=== PATIENT | female | born 1965 | race Caucasian/White ===

== ENCOUNTER 2017-04-05 06:30 | Day surgery (SDC) | payer BC, OTHER ==
[2017-04-05] MEDS: Lactated Ringers 1,000 ML IV SCH ×3 (07:11→19:57)
[2017-04-05] MEDS ORDERED: Fluorescein 5 ML Vial ONE (07:18)
[2017-04-05] MEDS ORDERED: Dexamethasone 4 MG/ML 5 ML MDV ONE (07:18)
[2017-04-05] MEDS ORDERED: Methylene Blue 50 MG/10 ML Ampule ONE (07:18)
[2017-04-05] MEDS ORDERED: Ondansetron 4 MG/2 ML SDV ONE (07:18)
[2017-04-05] MEDS ORDERED: diphenhydrAMINE 50 MG/ML SDV ONE (07:18)
[2017-04-05] MEDS ORDERED: Rocuronium 10 MG/ML 10 ML Syringe ONE (07:18)
[2017-04-05] MEDS ORDERED: Bupivacaine 0.25% 10 ML SDV ONE (07:18)
[2017-04-05] MEDS ORDERED: Propofol 200 MG/20 ML SDV ONE (07:19)
[2017-04-05] MEDS ORDERED: Midazolam 1 MG/ML 2 ML SDV ONE (07:19)
[2017-04-05] MEDS ORDERED: fentaNYL 100 MCG/2 ML SDV ONE (07:19)
[2017-04-05] MEDS ORDERED: Scopolamine 1.5 MG Transdermal Patch ONE (07:29)
[2017-04-05 07:31] LABS: CHLORIDE,CL 106 mmol/L (98-110); SODIUM,NA 138 mmol/L (136-146)
--- NOTE | 2017-04-05 07:31 | PCM.PREANE ---
Preanesthetic Assessment - Anesthesia/Transfusion/Family Hx Anesthesia History: Prior Anesthesia Without Reaction Family History of Anesthesia Reaction: No Transfusion History: No Prior Transfusion(s) - Review of Systems General: No Symptoms Pulmonary: No Symptoms Cardiovascular: No Symptoms Gastrointestinal: No Symptoms Neurological: No Symptoms Other: Reports: None - Physical Assessment NPO Status Date: 04/04/17 O2 Sat by Pulse Oximetry: 97 Respiratory Rate: 16 Vital Signs: Last Vital Signs Temp 36.6 C 04/05/17 07:10 Pulse 62 04/05/17 07:10 Resp 16 04/05/17 07:10 BP 110/77 04/05/17 07:10 Pulse Ox 97 04/05/17 07:10 Height: 1.63 m Weight: 68.039 kg ASA Class: 2 Mental Status: Alert & Oriented x3 Airway Class: Mallampati = 1 Dentition: Reports: Normal Dentition ROM/Head Extension: Full Lungs: Clear to Auscultation - Lab Values: Laboratory Last Values WBC 5.88 K/uL (4.0-11.0) 04/04/17 17:18 RBC 3.69 M/uL (4.30-5.90) L 04/04/17 17:18 Hgb 10.0 g/dL (12.0-16.0) L 04/04/17 17:18 Hct 31.3 % (36.0-46.0) L 04/04/17 17:18 MCV 84.8 fL (80.0-98.0) 04/04/17 17:18 MCH 27.1 pg (27.0-32.0) 04/04/17 17:18 MCHC 31.9 g/dL (31.0-37.0) 04/04/17 17:18 RDW Std Deviation 45.1 fl (28.0-62.0) 04/04/17 17:18 RDW Coeff of Mike 14 % (11.0-15.0) 04/04/17 17:18 Plt Count 332 K/uL (150-400) 04/04/17 17:18 MPV 8.90 fL (7.40-12.00) 04/04/17 17:18 Nucleated RBC % 0.0 /100WBC 04/04/17 17:18 Nucleated RBCs # 0 K/uL 10/30/17 17:18 HCG, Qual NEGATIVE (NEG) 04/05/17 07:05 Blood Type O NEGATIVE 04/04/17 17:18 Antibody Screen NEGATIVE 04/04/17 17:18 - Allergies Allergies/Adverse Reactions: Allergies Allergy/AdvReac Type Severity Reaction Status Date / Time Penicillins Allergy Cannot Verified 03/31/17 11:14 Remember - Acknowledgements Anesthesia Type Planned: General Anesthesia Pt an Appropriate Candidate for the Planned Anesthesia: Yes Alternatives and Risks of Anesthesia Discussed w Pt/Guardian: Yes Pt/Guardian Understands and Agrees with Anesthesia Plan: Yes Additional Comments: 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 Not multidrug resistant. treated with oral antibiotics PreAnesthesia Questionnaire PATIENT SAFETY COORDINATOR History: Reports: Dysfunctional Uterine Bleeding Immunologic History: Reports: Other (See Below) Other Immunologic History: MRSA - Past Surgical History HEENT Surgical History: Reports: Oral Surgery, Tonsillectomy Other HEENT Surgeries/Procedures: wisdom teeth - SUBSTANCE USE Smoking Status *Q: Never Smoker Recreational Drug Use History: No - HOME MEDS Home Medications: Home Meds Citalopram [Celexa] 10 mg PO DAILY 03/31/17 [History] - CURRENT (IN HOUSE) MEDS Current Meds: Current Medications Lactated Ringer's (Ringers, Lactated) 1,000 mls @ 100 mls/hr IV ASDIRECTED [facility] Last Admin: 04/05/17 07:11 Dose: 100 mls/hr Discontinued Medications Bupivacaine HCl (Sensorcaine-Mpf 0.25%) Confirm Administered Dose 20 ml .ROUTE .STK-MED ONE Stop: 04/05/17 07:19 Dexamethasone (Dexamethasone) Confirm Administered Dose 20 mg .ROUTE .STK-MED ONE Stop: 04/05/17 07:19 Diphenhydramine HCl (Benadryl) Confirm Administered Dose 50 mg .ROUTE .STK-MED ONE Stop: 04/05/17 07:19 Fentanyl (Sublimaze) Confirm Administered Dose 200 mcg .ROUTE .STK-MED ONE Stop: 04/05/17 07:20 Fluorescein Sodium (Ak-Fluor) Confirm Administered Dose 5 ml .ROUTE .STK-MED ONE Stop: 04/05/17 07:19 Acetaminophen (Ofirmev) Confirm Administered Dose 100 mls @ as directed IV .STK- MED ONE Stop: 04/05/17 07:21 Methylene Blue (Provayblue) Confirm Administered Dose 50 mg .ROUTE .STK-MED ONE Stop: 04/05/17 07:19 Midazolam HCl (Versed 1 Mg/Ml) Confirm Administered Dose 2 mg .ROUTE .STK-MED ONE Stop: 04/05/17 07:20 Ondansetron HCl (Zofran) Confirm Administered Dose 4 mg .ROUTE .STK-MED ONE Stop: 04/05/17 07:19 Propofol (Diprivan 20 Ml) Confirm Administered Dose 200 mg .ROUTE .STK-MED ONE Stop: 04/05/17 07:20 Rocuronium [place] (Zemuron) Confirm Administered Dose 100 mg .ROUTE .STK-MED ONE Stop: 04/05/17 07:19
[2017-04-05] MEDS ORDERED: ceFAZolin 1 GM in Premix Bag 1 BAG IV ONE (07:55)
[2017-04-05] MEDS ORDERED: Vasopressin 20 Units/1 ML MDV ONE (08:37)
[2017-04-05] MEDS ORDERED: HYDROmorphone 2 MG/ML Syringe ONE (08:42)
[2017-04-05] MEDS ORDERED: Furosemide 40 MG/4 ML VIAL ONE (10:11)
[2017-04-05] MEDS ORDERED: ePHEDrine 50 MG/ML SDV ONE (10:30)
[2017-04-05] MEDS ORDERED: Ketorolac 30 MG/ML SDV ONE (10:34)
[2017-04-05] MEDS ORDERED: Acetaminophen/oxyCODONE 325-5 MG Tab PO PRN (10:51)
[2017-04-05] MEDS ORDERED: Morphine 4 MG/ML Syringe IVPUSH PRN (10:51)
[2017-04-05] MEDS ORDERED: Ketorolac 30 MG/ML SDV IVPUSH PRN (10:51)
[2017-04-05] MEDS ORDERED: Ondansetron 4 MG/2 ML SDV IVPUSH PRN (10:51)
[2017-04-05] MEDS ORDERED: Morphine 2 MG/ML Syringe IVPUSH PRN (10:51)
[2017-04-05] MEDS ORDERED: Promethazine 25 MG/ML SDV IM PRN (10:51)
[2017-04-05] MEDS ORDERED: Ketorolac 30 MG/ML SDV IVPUSH ONE (10:51)
[2017-04-05] MEDS ORDERED: Aluminum Hydroxide/Magnesium Hydroxide/Simethicone Susp 30 ML Cup PO PRN (10:51)
[2017-04-05] MEDS ORDERED: Belladonna Alkaloids/Opium 16.2-30 MG Supp RECTAL ONE (10:55)
--- NOTE | 2017-04-05 11:09 | PCM.OPNOTE ---
- General Post-Op/Procedure Note Date of Surgery/Procedure: 04/05/17 Operative Procedure(s): Total Laparoscopic hysterectomy Bilateral salphingoophorectomy and cystoscopy Findings: EUA showed a 10 week sized uterus . Laparoscopy showed right ovarian cyst - appeared simple. TLH and bilateral salphingoopherectomy done. Cystoscopy showed bilateral ureteral jets. Vaginal closed with 0 polysorb ,mobley culdoplasty also done Pre Op Diagnosis: Menometrorrhagia secondary to fibroid uterus Post-Op Diagnosis: Menometrorrhagia secondary to fibroid uterus Primary Surgeon: Angelica Tucker Secondary Surgeon: Moni Stinson Anesthesia Provider: Serafin Zazueta Split Fluid Replacement, Intraop: 2,800 Output, Urine Amount: 20 EBL in mLs: 200 Condition: Good
--- NOTE | 2017-04-05 11:55 | PCM.POSTAN ---
POST ANESTHESIA ASSESSMENT - MENTAL STATUS Mental Status: Alert, Oriented - RESPIRATORY Respiratory Status: Respiratory Rate WNL, Airway Patent, O2 Saturation Stable - CARDIOVASCULAR CV Status: Pulse Rate WNL, Blood Pressure Stable - GASTROINTESTINAL GI Status: No Symptoms - POST OP HYDRATION Hydration Status: Adequate & Stable
[2017-04-05] MEDS: Acetaminophen/oxyCODONE 325-5 MG Tab PO PRN ×3 (14:08→22:39)
[2017-04-06] MEDS: Acetaminophen/oxyCODONE 325-5 MG Tab PO PRN (03:51)
[2017-04-06] MEDS: Lactated Ringers 1,000 ML IV SCH (06:00)
[2017-04-06 06:19] LABS: CHLORIDE,CL 108 mmol/L (98-110); SODIUM,NA 138 mmol/L (136-146)
--- NOTE | 2017-04-06 09:03 | PCM.SURGPN ---
- General Info Date of Service: 04/06/17 Date of Surgery/Procedure: 04/05/17 POD#: 1 Post-Op Diagnosis: s/p TLH and BSO Admission Diagnosis/Problem: Leiomyoma of uterus Functional Status: Reports: Pain Controlled, Tolerating Diet, Ambulating, Urinating - Review of Systems General: Reports: No Symptoms HEENT: Reports: No Symptoms Pulmonary: Reports: No Symptoms Cardiovascular: Reports: No Symptoms Gastrointestinal: Reports: No Symptoms Genitourinary: Reports: No Symptoms Musculoskeletal: Reports: No Symptoms Skin: Reports: No Symptoms Neurological: Reports: No Symptoms Psychiatric: Reports: No Symptoms - Patient Data Vitals - Most Recent: Last Vital Signs Temp 36.7 C 04/06/17 04:00 Pulse 61 04/06/17 04:00 Resp 14 04/06/17 04:00 BP 94/54 L 04/06/17 04:00 Pulse Ox 93 L 04/06/17 04:00 Weight - Most Recent: 68.039 kg I&O - Last 24 Hours: Intake & Output 04/05/17 04/06/17 04/06/17 22:59 06:59 14:59 Intake Total 2480 2600 Output Total 1300 5150 Balance 1180 -2550 Lab Results Last 24 Hrs: Laboratory Results - last 24 hr 04/06/17 04/06/17 Range/Units 05:45 05:45 WBC 8.91 (4.0-11.0) K/uL RBC 2.97 L (4.30-5.90) M/uL Hgb 8.0 L (12.0-16.0) g/dL Hct 25.2 L (36.0-46.0) % MCV 84.8 (80.0-98.0) fL MCH 26.9 L (27.0-32.0) pg MCHC 31.7 (31.0-37.0) g/dL RDW Std Deviation 45.1 (28.0-62.0) fl RDW Coeff of Mike 15 (11.0-15.0) % Plt Count 280 (150-400) K/uL MPV 8.70 (7.40-12.00) fL Neut % (Auto) 68.5 (48.0-80.0) % Lymph % (Auto) 22.6 (16.0-40.0) % [place] % (Auto) 7.5 (0.0-15.0) % Eos % (Auto) 1.2 (0.0-7.0) % Baso % (Auto) 0.2 (0.0-1.5) % Neut # (Auto) 6.1 H (1.4-5.7) K/uL Lymph # (Auto) 2.0 (0.6-2.4) K/uL [place] # (Auto) 0.7 (0.0-0.8) K/uL Eos # (Auto) 0.1 (0.0-0.7) K/uL Baso # (Auto) 0.0 (0.0-0.1) K/uL Nucleated RBC % 0.0 /100WBC Nucleated RBCs # 0 K/uL Sodium 138 (136-146) mmol/L Potassium 4.4 (3.5-5.1) mmol/L Chloride 108 (98-110) mmol/L Carbon Dioxide 24 (21-31) mmol/L BUN 10 (6.0-23.0) mg/dL Creatinine 0.8 (0.6-1.5) mg/dL Est Cr Clr Drug Dosing 71.03 mL/min Estimated GFR (MDRD) > 60.0 ml/min Glucose 90 (60-110) mg/dL Calcium 7.7 L (8.8-10.8) mg/dL Med Orders - Current: Current Medications Al Hydroxide/Mg Hydroxide (Mag-Al Plus) 30 ml PO Q4H PRN PRN Reason: Indigestion Lactated Ringer's (Ringers, Lactated) 1,000 mls @ 100 mls/hr IV ASDIRECTED [facility] Last Admin: 04/06/17 06:00 Dose: 100 mls/hr Ketorolac Tromethamine (Toradol) 30 mg IVPUSH Q6H PRN PRN Reason: Pain (severe 7-10) Stop: 04/10/17 10:51 Morphine Sulfate (Morphine) 2 mg IVPUSH Q2H PRN PRN Reason: Pain (severe 7-10) Morphine Sulfate (Morphine) 4 mg IVPUSH Q2H PRN PRN Reason: Pain (severe 7-10) Ondansetron HCl (Zofran) 4 mg IVPUSH Q6H PRN PRN Reason: Nausea/Vomiting Oxycodone/Acetaminophen (Percocet 325-5 Mg) 1 tab PO Q4H PRN PRN Reason: Pain (moderate 4-6) Last Admin: 04/06/17 03:51 Dose: 1 tab Oxycodone/Acetaminophen (Percocet 325-5 Mg) 2 tab PO Q4H PRN PRN Reason: Pain (moderate 4-6) Promethazine HCl (Phenergan) 25 mg IM Q6H PRN PRN Reason: Nausea/Vomiting Discontinued Medications Belladonna Alkaloids/Opium (B & O Supprettes No. 15a) 1 supp RECTAL ONETIME ONE Stop: 04/05/17 10:56 Last Admin: 04/05/17 14:10 Dose: Not Given Bupivacaine HCl (Sensorcaine-Mpf 0.25%) Confirm Administered Dose 20 ml .ROUTE .STK-MED ONE Stop: 04/05/17 07:19 Dexamethasone (Dexamethasone) Confirm Administered Dose 20 mg .ROUTE .STK-MED ONE Stop: 04/05/17 07:19 Diphenhydramine HCl (Benadryl) Confirm Administered Dose 50 mg .ROUTE .STK-MED ONE Stop: 04/05/17 07:19 Ephedrine Sulfate (Ephedrine Sulfate) Confirm Administered Dose 50 mg .ROUTE .STK-MED ONE Stop: 04/05/17 10:31 Fentanyl (Sublimaze) Confirm Administered Dose 200 mcg .ROUTE .STK-MED ONE Stop: 04/05/17 07:20 Fluorescein Sodium (Ak-Fluor) Confirm Administered Dose 5 ml .ROUTE .STK-MED ONE Stop: 04/05/17 07:19 Furosemide (Lasix) Confirm Administered Dose 40 mg .ROUTE .STK-MED ONE Stop: 04/05/17 10:12 Hydromorphone HCl (Dilaudid) Confirm Administered Dose 2 mg .ROUTE .STK-MED ONE Stop: 04/05/17 08:43 Acetaminophen (Ofirmev) Confirm Administered Dose 100 mls @ as directed IV .STK- MED ONE Stop: 04/05/17 07:21 Cefazolin Sodium/Dextrose 1 gm (/ Premix) 50 mls @ 100 mls/hr IV ONETIME ONE Stop: 04/05/17 08:24 Last Admin: 04/05/17 14:10 Dose: Not Given Ketorolac Tromethamine (Toradol) Confirm Administered Dose 30 mg .ROUTE .STK- MED ONE Stop: 04/05/17 10:35 Ketorolac Tromethamine (Toradol) 30 mg IVPUSH ONETIME ONE Stop: 04/05/17 10:52 Last Admin: 04/05/17 14:10 Dose: Not Given Methylene Blue (Provayblue) Confirm Administered Dose 50 mg .ROUTE .STK-MED ONE Stop: 04/05/17 07:19 Midazolam HCl (Versed 1 Mg/Ml) Confirm Administered Dose 2 mg .ROUTE .STK-MED ONE Stop: 04/05/17 07:20 Ondansetron HCl (Zofran) Confirm Administered Dose 4 mg .ROUTE .STK-MED ONE Stop: 04/05/17 07:19 Propofol (Diprivan 20 Ml) Confirm Administered Dose 200 mg .ROUTE .STK-MED ONE Stop: 04/05/17 07:20 Rocuronium [place] (Zemuron) Confirm Administered Dose 100 mg .ROUTE .STK-MED ONE Stop: 04/05/17 07:19 Scopolamine (Transderm-Scop) Confirm Administered Dose 1.5 mg .ROUTE .STK-MED ONE Stop: 04/05/17 07:30 Vasopressin (Vasopressin) Confirm Administered Dose 20 units .ROUTE .STK-MED ONE Stop: 04/05/17 08:38 - Exam Wound/Incisions: Dressing Dry and Intact General: Alert, Oriented Lungs: Clear to Auscultation, Normal Respiratory Effort Cardiovascular: Regular Rate, Regular Rhythm GI/Abdominal Exam: Normal Bowel Sounds, Other (Laparoscopic incision c/d/i) Extremities: Normal Inspection Psy/Mental Status: Alert - Problem List & Annotations (1) Leiomyoma SNOMED Code(s): 305706655569102 Code(s): D21.9 - BENIGN NEOPLASM OF CONNECTIVE AND OTHER SOFT TISSUE, UNSP Status: Acute Current Visit: Yes (2) H/O hysterectomy for benign disease SNOMED Code(s): 794659745 Code(s): Z90.710 - ACQUIRED ABSENCE OF BOTH CERVIX AND UTERUS Status: Acute Current Visit: Yes - Problem List Review Problem List Initiated/Reviewed/Updated: Yes - My Orders Last 24 Hours: Active Orders 24 hr Category Date Time Status Patient Status [ADT] Routine ADT 04/05/17 10:51 Active Antiembolic Devices [RC] PER UNIT ROUTINE Care 04/05/17 10:52 Active Communication Order [RC] DAILY Care 04/05/17 20:00 Active Communication Order [RC] DAILY Care 04/05/17 23:00 Active Notify Provider Intake and Out [RC] ASDIRECTED Care 04/05/17 10:51 Active Notify Provider Vital Signs [RC] ASDIRECTED Care 04/05/17 10:51 Active Oxygen Therapy [RC] ASDIRECTED Care 04/05/17 10:51 Active RT Incentive Spirometry [RC] Q2HWA Care 04/05/17 10:51 Active Up With Assistance [RC] PER UNIT ROUTINE Care 04/05/17 10:51 Active Up ad Zoe [RC] PER UNIT ROUTINE Care 04/05/17 10:51 Active Vital Signs [RC] Q4H Care 04/05/17 10:51 Active Regular Diet [DIET] Diet 04/05/17 Lunch Active Acetaminophen/oxyCODONE [Percocet 325-5 MG] Med 04/05/17 10:51 Active 1 tab PO Q4H PRN Acetaminophen/oxyCODONE [Percocet 325-5 MG] Med 04/05/17 10:51 Active 2 tab PO Q4H PRN Alum Hydrox/Mag Hydrox/Simeth [Mag-Al Plus] Med 04/05/17 10:51 Active 30 ml PO Q4H PRN Ketorolac [Toradol] Med 04/05/17 10:51 Active 30 mg IVPUSH Q6H PRN Morphine Med 04/05/17 10:51 Active 2 mg IVPUSH Q2H PRN Morphine Med 04/05/17 10:51 Active 4 mg IVPUSH Q2H PRN Ondansetron [Zofran] Med 04/05/17 10:51 Active 4 mg IVPUSH Q6H PRN Promethazine [Phenergan] Med 04/05/17 10:51 Active 25 mg IM Q6H PRN Peripheral IV Discontinue [OM.PC] Routine Oth 04/05/17 10:51 Ordered Sequential Compression Device [OM.PC] Per Unit Routine Oth 04/05/17 10:51 Ordered Resuscitation Status Routine Resus Stat 04/05/17 10:51 Ordered Medication Orders Al Hydroxide/Mg Hydroxide (Mag-Al Plus) 30 ml PO Q4H PRN PRN Reason: Indigestion Lactated Ringer's (Ringers, Lactated) 1,000 mls @ 100 mls/hr IV ASDIRECTED JO Last Admin: 04/06/17 06:00 Dose: 100 mls/hr Infusion: 04/06/17 05:57 Dose: 100 mls/hr Admin: 04/05/17 19:57 Dose: 100 mls/hr Infusion: 04/05/17 19:57 Dose: 100 mls/hr Admin: 04/05/17 11:06 Dose: 100 mls/hr Infusion: 04/05/17 11:06 Dose: 100 mls/hr Admin: 04/05/17 07:11 Dose: 100 mls/hr Ketorolac Tromethamine (Toradol) 30 mg IVPUSH Q6H PRN PRN Reason: Pain (severe 7-10) Stop: 04/10/17 10:51 Morphine Sulfate (Morphine) 2 mg IVPUSH Q2H PRN PRN Reason: Pain (severe 7-10) Morphine Sulfate (Morphine) 4 mg IVPUSH Q2H PRN PRN Reason: Pain (severe 7-10) Ondansetron HCl (Zofran) 4 mg IVPUSH Q6H PRN PRN Reason: Nausea/Vomiting Oxycodone/Acetaminophen (Percocet 325-5 Mg) 1 tab PO Q4H PRN PRN Reason: Pain (moderate 4-6) Last Admin: 04/06/17 03:51 Dose: 1 tab Admin: 04/05/17 22:39 Dose: 1 tab Admin: 04/05/17 18:37 Dose: 1 tab Admin: 04/05/17 14:08 Dose: 1 tab Oxycodone/Acetaminophen (Percocet 325-5 Mg) 2 tab PO Q4H PRN PRN Reason: Pain (moderate 4-6) Promethazine HCl (Phenergan) 25 mg IM Q6H PRN PRN Reason: Nausea/Vomiting - Assessment Assessment (Free Text/Narrative):: 51 yo s/p TLH , BSO , POD 1 stable - Plan Plan (Free Text/Narrative):: Patient has met all post operative goals, ambulating voiding , has passed gas Plan Pain control Discharge Home today with pain control , reglan
[2017-04-06] MEDS ORDERED: Acetaminophen/oxyCODONE 325-5 MG Tab PO ONE (09:41)
--- NOTE | 2017-04-07 15:17 | OR ---
SURGEON: VEE TORREZ ACTUARIAL CLERK SURGEON: Dr. Moni Stinson. DATE OF PROCEDURE: 04/05/2017 PREOPERATIVE DIAGNOSES: 51 yo P2 with Menometrorrhagia secondary to uterine fibroids and right ovarian cyst. POSTOPERATIVE DIAGNOSIS: 51 yo P2 with Menometrorrhagia secondary to uterine fibroids and right ovarian cyst. PROCEDURE: Total laparoscopic hysterectomy, BSO, and cystoscopy. ANESTHESIA: General. EBL: 200. IV FLUID: 2800. URINE OUTPUT: 50. SPECIMEN: Uterus, tubes, and ovaries. COMPLICATION: None. FINDINGS: Examination under anesthesia revealed a 10-week size anteverted uterus. Laparoscopy showed bulky fibroid uterus and right ovarian cyst which appeared simple. Normal right and left tubes and left ovary. Bilateral jets and intact bladder was noted on cystoscopy. HISTORY The patient had a history of heavy , irregular and prolonged menstrual period since november, she used provera and this did not help her symptoms. she had an endometrial biopsy done that was benign, TSH and prolactin was wnl.Ultrasound was done which showed fibroid uterus and a simple right ovarian cyst. The patient was informed about the finding and given the option of surgery, embolization, medical management She opted for hysterectomy. She was given the option to preserve ovaries versus BSO, but the patient opted to remove the ovaries. The patient was informed of the risks, benefits, and alternatives, and the patient agreed to the procedure and signed the consent form. PROCEDURE IN DETAIL: The patient was taken to the OR with the IV fluid running . A pneumatic compression stockings was applied to the lower extremities. General anesthesia was performed without difficulty. A dorsolithotomy position was obtained with Damir stirrups. Both arms were tucked on both sides. An examination under anesthesia showed a 10-week size uterus. The patient was prepared and draped in the usual sterile fashion. A Fitzgerald catheter was inserted. The bivalve speculum was placed to expose the cervix. The anterior lip of the cervix was grasped with an allis forcep.The uterus was then sounded to 10 cm. An Advincula Customer Support Engineer was placed through the cervix to the uterus. The tip of the advincula was inflated. The Occluder balloon was also inflated. Attention was then turned to the abdomen. Marcaine was iinfiltrated into the subumbilical fold. A small incision was made at the umbilical fold, and the abdomen was entered via direct entry with the fiberoptic trocar. Upon confirmation of entry into the peritoneal cavity, the CO2 gas was then insufflated into the abdomen to a pressure of 15 mmHg. Intraabdominal survey revealed normal-appearing liver, gallbladder, and spleen. The pelvic anatomy was noted above. Again, two 5 mm trocars were inserted into bilateral lower quadrants two fingerbreadths medial and anterior to the anterior superior iliac spine and diagonal to the umbilicus. The patient was placed in the Trendelenburg position to facilitate pelvic exposure. Then, both ureters were identified and the hysterectomy started. On the right and the left, The IP ligament was identified and the LigaSure device was used to transect the IP all the way to the level of the uterus, and then the round ligament was also identified and also transected to seperate the broad ligament. Then, the bladder flap was created with the aid of the LigaSure device and harmonic. The bladder was dissected off the lower uterine segment and upper vagina. Also, the posterior peritoneum was exposed to the level of the uterosacral , to exposure the uterine vessels , after being skeletonized with the aid of the LigaSure device and Harmonic. The Advincula Customer Support Engineer was always kept in tension in order to avoid the ureter injury. The LigaSure device was then used to coagulate the uterine vessel at the colpotomy junction and above. With the aid of the Harmonic device, the vagina was entered and scored circumferentially at the cervicovaginal junction. The uterosacral and cardinal ligament were completely detached from the cervix. After completion of this, the attention was then placed to the vagina, where the manipulator bulb was deflated, and the cervix and the uterus were taken out through the vagina. The vaginal colpotomy that was created was identified. A Loza stitch was placed from the posterior vagina to the uterosacrals through the peritoneum back to the uterosacrals on the other side. The vaginal incision was then stitched in a transverse fashion. A Loza's was then tied up to elevate the vagina, and cystoscopy was then performed that showed bilateral jets and bilateral integrity was confirmed. Attention was then paid again to the abdomen for a laparoscopy. The incision was noted to be hemostatic. Hemostasis was confirmed intraabdominally with the pneumoperitoneum reduced to about 5 mmHg. The trocars were then removed under direct guidance. The instruments were removed from the abdomen. The laparoscopic incision was then stitched with 4-0 Monocryl. Steri-Strips were placed. Good hemostasis was noted on the abdomen. The vagina was then inspected again, and the vaginal incision was noted to be hemostatic. All instrument count and pad count were correct x2. The patient was taken to the recovery room in stable condition. ABIOLA THACKER /[id number] MTDAna Cristina
== END 2017-04-06 11:10 | disposition home or self-care (01) ==
LOC: MW.SDS 06:30 → MW.MS 10:51 → MW.SDS 04-06 11:10
PROVIDERS: ATTEND Obstetrics & Gynecology
DX: N85.01 Benign endometrial hyperplasia (principal); D25.9 Leiomyoma of uterus, unspecified; N83.01 Follicular cyst of right ovary; Z86.14 Personal history of Methicillin resistant Staphylococcus aureus infection; Z88.0 Allergy status to penicillin; Z90.89 Acquired absence of other organs; Z98.818 Other dental procedure status; Z79.899 Other long term (current) drug therapy
CPT/HCPCS: 36415; 58571; 80048; 84703; 85025; 85027; 86850; 86900; 86901; 88307; A9270; J1100; J1170; J1200; J1885; J1940; J2250; J2405; J3010; J7120; 00840; J2704